=== PATIENT | male | born 1955 | race Caucasian/White ===

== ENCOUNTER → 2020-11-26 | Outpatient (CLI) | payer MEDICARE | END | disposition home or self-care (01) | LOC: CVU 11:26 | PROVIDERS: ATTEND Internal Medicine Cardiovascular Disease | DX: I08.8 Other rheumatic multiple valve diseases (principal); I25.10 Atherosclerotic heart disease of native coronary artery without angina pectoris; E78.5 Hyperlipidemia, unspecified | CPT/HCPCS: 93306; 93356 ==

== ENCOUNTER 2020-12-09 10:17 | Outpatient (CLI) | payer MEDICARE | END 2020-12-09 23:59 | disposition home or self-care (01) | LOC: CFH 10:17 | PROVIDERS: ATTEND Internal Medicine | DX: R91.8 Other nonspecific abnormal finding of lung field (principal); J47.9 Bronchiectasis, uncomplicated; J98.4 Other disorders of lung | CPT/HCPCS: 71250 ==

== ENCOUNTER 2020-12-31 08:53 | Outpatient (CLI) | payer MEDICARE | END 2020-12-31 23:59 | disposition home or self-care (01) | LOC: RAD 08:53 | PROVIDERS: ATTEND Nurse Practitioner Family | DX: Z02.9 Encounter for administrative examinations, unspecified (principal) ==